=== PATIENT | male | born 2000 | race Caucasian/White ===

== ENCOUNTER 2023-06-01 20:53 | Emergency (ER) | payer SELFPAY ==
[2023-06-01 22:24] LABS: #Basophils 0.1 10x3/uL (0.0-0.2); #Eosinphils 0.7 10x3/uL (0.0-0.5); #Monocytes 0.7 10x3/uL (0.0-1.1); #Neutrophils 4.6 10x3/uL (1.5-8.4); %Basophils 0.5 % (0.0-2.0); %Eosinophils 7.3 % (0.0-6.0); %Lymphocytes 34.1 % (18.0-47.0); %Monocytes 7.7 % (0.0-10.0); %Neutrophils 50.1 % (40.0-75.0); ALT (SGPT) 23 U/L (8-55); AST (SGOT) 17 U/L (5-34); Albumin 3.8 g/dL (3.5-5.0); Alkaline Phosphatase 53 U/L (40-110); Anion Gap 17 mmol/L (10-20); BUN (Urea Nitrogen) 12 mg/dL (8.9-20.6); Bilirubin, Total 0.4 mg/dL (0.2-1.2); Calc. Creatinine Clearance 0 mL/min (70-130); Calcium 8.9 mg/dL (7.8-10.44); Carbon Dioxide 24 mmol/L (22-29); Chloride 106 mmol/L (98-107); Estimated GFR 123; Globulin 2.3 g/dL (2.4-3.5); Glucose 101 mg/dL (70-105); Hematocrit 44.1 % (38.8-50.0); Hemoglobin 15.6 g/dL (13.5-17.5); Mean Corpuscular HGB CONC 35.4 g/dL (32.0-36.0); Mean Corpuscular Hemoglobin 30.4 pg (27.0-33.0); Mean Corpuscular Volume 85.8 fl (81.2-95.1); Mean Platelet Volume 10.6 fl (7.4-10.4); Platelet Count 233 10x3/uL (150-450); Potassium 3.7 mmol/L (3.5-5.1); Protein, Total 6.1 g/dL (6.0-8.3); RBC Distribution Width 13.2 % (11.5-14.5); Red Blood Cell (RBC) Count 5.14 10x6/uL (4.32-5.72); Sodium 143 mmol/L (136-145); White Blood Cell (WBC) Count 9.2 10x3/uL (3.5-10.5)
== END 2023-06-01 22:57 | disposition home or self-care (01) ==
LOC: CSHERS 20:53
DX: R11.2 Nausea with vomiting, unspecified (principal); F17.210 Nicotine dependence, cigarettes, uncomplicated
CPT/HCPCS: 80053; 85025; 99284

== ENCOUNTER 2025-01-27 20:29 | Emergency (ER) | payer SELFPAY ==
[2025-01-27] MEDS ORDERED: Boostrix 0.5 ML (Tdap) VIAL (>/=7 yrs of age) ONE (22:01)
[2025-01-27] MEDS ORDERED: HYDROcodone/Acetaminophen 10/325 mg Tablet ONE (22:01)
== END 2025-01-27 22:35 | disposition home or self-care (01) ==
LOC: CSHERS 20:29
DX: T25.231A Burn of second degree of right toe(s) (nail), initial encounter (principal); Z23 Encounter for immunization; X10.0XXA Contact with hot drinks, initial encounter
CPT/HCPCS: 16020; 90471; 90715